=== PATIENT | female | born 1970 | race Two or more races ===

== ENCOUNTER 2024-04-17 14:10 | Inpatient (IN) | payer OTHER ==
[~2024-04-17] VITALS: Ht 160 cm; Wt 75.7 kg
[2024-04-17 10:45] VITALS: BP 115/71
[2024-04-22] MEDS ORDERED: CEFAZOLIN SODIUM 1,000 MG VIAL IV ONE (13:45)
[2024-04-22] MEDS ORDERED: POVIDONE-IODINE 118 ML BOTT TOP ONE (13:45)
[2024-04-22] MEDS ORDERED: MEPERIDINE HCL/PF 50 MG/ML VIAL IV SCH (17:00)
[2024-04-22] MEDS ORDERED: PROMETHAZINE HCL 25 MG/ML AMPUL IV SCH (17:01)
[2024-04-22] MEDS ORDERED: MORPHINE SULFATE 4 MG/ML VIAL IV ONE (17:25)
[2024-04-22 19:29] VITALS: BP 115/71
[2024-04-23] VITALS: BP 129/87; BP 145/83
[2024-04-23] MEDS ORDERED: IBUprofen 800 MG TABLET PO SCH (02:00)
[2024-04-23 04:00] VITALS: BP 134/83
[2024-04-23] MEDS ORDERED: SIMETHICONE 125 MG CAPSULE PO SCH (05:00)
[2024-04-23] MEDS ORDERED: GABAPENTIN 300 MG CAPSULE PO SCH (05:00)
[2024-04-23 06:31] LABS: HEMATOCRIT 35.3 % (36.0-45.00); HEMOGLOBIN 12.2 g/dL (12.0-15.00); MEAN CELL VOLUME 88.2 fL (80.00-100.00); MEAN CORPUSCULAR HEMOGLOBIN 30.6 pg (27.00-32.0); MEAN CORPUSCULAR HGB CONC 34.7 g/dl (32.0-36.0); PLATELET COUNT 280 K/uL (150-450); RED CELL DISTRIBUTION WIDTH 12.7 % (11.5-14.5)
[2024-04-23 08:44] VITALS: BP 135/81
[2024-04-23 12:48] VITALS: BP 136/83
[2024-04-23] MEDS ORDERED: CITRIC ACID/SODIUM CITRATE 30 ML BLIST.PACK PO NR (13:00)
[2024-04-23 16:00] VITALS: BP 121/68
[2024-04-24 01:54] VITALS: BP 115/72
[2024-04-24] MEDS ORDERED: POLYETHYLENE GLYCOL 3350 17 GM BLIST.PACK PO SCH (05:00)
[2024-04-24] MEDS ORDERED: POLY119PG PO (07:10)
[2024-04-24] MEDS ORDERED: IBUPROFEN800 MG PO (07:10)
[2024-04-24] MEDS ORDERED: GABAPENTIN300 MG PO (07:10)
[2024-04-24] MEDS ORDERED: SIMETHICONE125 M1 PO (07:10)
[2024-04-24 08:56] VITALS: BP 122/89
== END 2024-04-24 10:09 | disposition home or self-care (01) | DRG 743 ==
LOC: OB/GYN 04-22 05:12 → O/R 04-22 05:12 → OB/GYN 04-22 09:00
PROVIDERS: ADMIT Obstetrics & Gynecology; ATTEND Obstetrics & Gynecology
PROC: 0UT70ZZ Resection of Bilateral Fallopian Tubes, Open Approach (ICD-10-PCS; 2024-04-22)
PROC: 0UB20ZZ Excision of Bilateral Ovaries, Open Approach (ICD-10-PCS; 2024-04-22)
PROC: 0UT90ZZ Resection of Uterus, Open Approach (ICD-10-PCS; principal; 2024-04-22 12:30)
DX: N84.0 Polyp of corpus uteri (principal); N80.03 Adenomyosis of the uterus; N72 Inflammatory disease of cervix uteri; Z20.822 Contact with and (suspected) exposure to COVID-19